=== PATIENT | male | born 1950 | race Caucasian/White ===

== ENCOUNTER 2020-08-07 03:06 | Outpatient (CLI) | payer OTHER | END 2020-08-07 03:10 | disposition home or self-care (01) | LOC: PPH VACUNA 03:06 | PROVIDERS: ATTEND Emergency Medicine Pediatric Emergency Medicine | DX: Z23 Encounter for immunization (principal) ==

== ENCOUNTER 2020-08-28 | Outpatient (CLI) | payer OTHER | END 2020-08-28 09:49 | disposition home or self-care (01) | LOC: PPH VACUNA | PROVIDERS: ATTEND Emergency Medicine Pediatric Emergency Medicine | DX: Z23 Encounter for immunization (principal) ==